=== PATIENT | female | born 1980 | race American Indian/Alaskan Native ===

== ENCOUNTER 2017-11-10 11:10 | Emergency (ER) | payer MEDICAID ==
[2017-11-10] MEDS ORDERED: APRESOLINE IV ONE (12:00)
[2017-11-10] MEDS ORDERED: ZOFRAN IV ONE (12:00)
[2017-11-10 12:17] LABS: Basophils % (Auto) 0.4 % (0.0-1.8); Eosinophils # (Auto) 0.9 K/mm3 (0.0-0.4); Eosinophils % (Auto) 9.9 % (0.0-4.3); Hematocrit 36.2 % (30.3-42.9); Hemoglobin 12.9 gm/dl (10.1-14.3); Lymphocytes # (Auto) 2.2 K/mm3 (1.2-5.4); Lymphocytes % (Auto) 24.5 % (13.4-35.0); Mean Corpuscular HGB Conc 36 % (30-34); Mean Corpuscular Hemoglobin 33 pg (28-32); Mean Corpuscular Volume 92 fl (79-97); Monocytes # (Auto) 0.6 K/mm3 (0.0-0.8); Monocytes % (Auto) 7.1 % (0.0-7.3); Platelet Count 215 K/mm3 (140-440); Red Blood Count 3.96 M/mm3 (3.65-5.03); Red Cell Distribution Width 13.8 % (13.2-15.2)
[2017-11-10 12:22] LABS: BUN/Creatinine Ratio 12; Blood Urea Nitrogen 6 mg/dL (7-17); Calcium 8.6 mg/dL (8.4-10.2); Hemolysis Index 12
[2017-11-10 13:01] LABS: Bacteria,Urine 1+ /HPF (Negative); Bilirubin,Urine NEG (Negative); Blood,Urine NEG (Negative); Color,Urine Yellow (Yellow); Mucus,Urine 2+ /HPF; Protein,Urine <15 mg/dL mg/dL (Negative)
--- NOTE | 2017-11-10 14:17 | Ultrasound Report ---
OB ULTRASOUND History decreased movement. Technique: Transabdominal ultrasound with Doppler interrogation. Comparison: None. Gestation: Single Position: Cephalic Amniotic Fluid: Within normal limits Placenta: Anterior Placental Grade: 0 Heart Rate: 145 BPM Cervical length: 3.5 cm (Normal > 3 cm) x It is too early for a anatomical survey BPD: 3.3 cm = 16 w 1 d HC: 13.4 cm = 17 w 0 d AC: 10.4 cm = 16 w 2 d FL: 2.2 cm = 16 w 5 d HC/AC Ratio: 1.29 Cephalic Index: 71.5 Estimated Weight: 160 grams. 85th percentile. Clinical age = 15 w 6 d EDC: 04/28/18 US Gest. Age = 16 w 4 d EDC: 04/23/18 IMPRESSION: Viable, single intrauterine as described. No acute abnormality is detected
[2017-11-10 14:46] VITALS: BP 129/76
--- NOTE | 2017-11-10 15:25 | Emergency Department Report ---
HPI - General Chief Complaint: High BP Time Seen by Provider: 11/10/17 11:59 - HPI HPI: The patient is 37-year-old female EGA 16 weeks whom presents for evaluation of abdominal pain, nausea, and vomiting. The patient complains of 2 days of cramping lower abdominal pain, mild in severity, exacerbated with retching, and associated with nausea and 2-3 episodes of nonbilious, nonbloody emesis. The patient denies fever, chills, night sweats, trauma to the abdomen, vaginal bleeding, diarrhea, blood in the stool, dark tarry stool, dysuria, hematuria, flank pain, genital discharge, inability to pass flatus. ED Past Medical Hx - Past Medical History Hx Hypertension: Yes - Surgical History Past Surgical History?: No - Social History Smoking Status: Current Every Day Smoker Substance Use Type: None - Medications Home Medications: Home Medications Medication Instructions Recorded Confirmed Last Taken Type Acetaminophen [Tylenol] 500 mg PO Q6HR #20 tablet 11/10/17 Unknown Rx Ondansetron [Zofran TAB] 4 mg PO Q8HR PRN #20 tablet 11/10/17 Unknown Rx Pnv No.95/Ferrous Fum/Folic AC 1 each PO QDAY #31 tablet 11/10/17 Unknown Rx [ Vitamin Tablet] ED Review of Systems ROS: Stated complaint: FLU LIKE SYMPTOMS Other details as noted in HPI Constitutional: denies: fever ENT: denies: throat or neck pain Respiratory: denies: cough, shortness of breath Cardiovascular: denies: chest pain Endocrine: denies unexplained weight loss or gain Gastrointestinal: reports: abdominal pain, nausea Genitourinary: denies: dysuria Musculoskeletal: denies: leg swelling Skin: denies: rash Neurological: denies: headache Hematological/Lymphatic: denies: easy bleeding or easy bruising Psych: denies sadness or hopelessness Physical Exam - Physical Exam Vital Signs: Vital Signs 11/10/17 11/10/17 11/10/17 11:14 11:43 11:45 Temperature 97.7 F Pulse Rate 86 Respiratory 16 Rate Blood Pressure 176/111 155/91 O2 Sat by Pulse 99 100 97 Oximetry 11/10/17 11/10/17 11/10/17 12:00 12:16 12:42 Temperature Pulse Rate Respiratory Rate Blood Pressure 117/65 117/65 134/76 O2 Sat by Pulse 97 100 98 Oximetry 02/28/18 02/28/18 02/28/18 12:46 14:30 14:45 Temperature Pulse Rate Respiratory Rate Blood Pressure 134/76 134/76 129/76 O2 Sat by Pulse 99 100 Oximetry Physical Exam: General: well-nourished, well-developed, no acute distress Head: Normocephalic, atraumatic Eyes: normal sclera ENT: Mucous membranes are pink and moist Neck: trachea midline, neck supple, No neck stiffness, no cervical adenopathy Respiratory: Breath sounds equal bilaterally, no wheezing, rales, or rhonchi Cardio: S1 and S2 present, no murmurs, rubs, gallops, capillary refill is brisk Abdomen: Normoactive bowel sounds, soft abdomen, suprapubic tenderness to palpation present, no rigidity, no guarding or rebound tenderness Chest WALL/Back: No tenderness to palpation of the chest wall, no CVA tenderness with percussion Musc: No pitting edema Skin: No rash Neuro: no facial drooping, normal speech Psych: Normal affect ED Course Vital Signs 11/10/17 11/10/17 11/10/17 11:14 11:43 11:45 Temperature 97.7 F Pulse Rate 86 Respiratory 16 Rate Blood Pressure 176/111 155/91 O2 Sat by Pulse 99 100 97 Oximetry 11/10/17 11/10/17 11/10/17 12:00 12:16 12:42 Temperature Pulse Rate Respiratory Rate Blood Pressure 117/65 117/65 134/76 O2 Sat by Pulse 97 100 98 Oximetry 11/10/17 11/10/17 11/10/17 12:46 14:30 14:45 Temperature Pulse Rate Respiratory Rate Blood Pressure 134/76 134/76 129/76 O2 Sat by Pulse 99 100 Oximetry ED Medical Decision Making - Lab Data Result diagrams: 11/10/17 11:50 11/10/17 11:50 - Medical Decision Making The patient was seen and examined by myself. 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 On initial evaluation, the patient was found to be in no distress. Evaluation orders were placed. The patient was given nausea medicine. Lab results exhibited positive beta hCG and Rh+ blood type. Ultrasound of the pelvis reveals a live intrauterine 16 weeks ega, with normal heart rate. The patient was reevaluated and reported that their symptoms were markedly improved. The patient is stable for discharge with outpatient follow-up. The patient is given follow-up and return instructions. The patient expressed understanding and agreed with the plan. The patient is discharged in stable condition. Critical care attestation.: If time is entered above; I have spent that time in minutes in the direct care of this critically ill patient, excluding procedure time. ED Disposition Clinical Impression: Hypertensive urgency, Abdominal pain during intrauterine , Nausea and vomiting during prior to 22 weeks gestation Disposition: TO HOME OR SELFCARE Is pt being admited?: No Does the pt Need Aspirin: No Condition: Stable Instructions: Hypertensive Crisis (ED), Morning Sickness (ED), Acute Nausea and Vomiting (ED), Acute Abdominal Pain (ED) Referrals: PRIMARY CARE, [Primary Care Provider] - 3-5 Days [facility] [Provider Group] - 3-5 Days Time of Disposition: 15:20
== END 2017-11-10 16:04 | disposition home or self-care (01) ==
LOC: ED 11:10
DX: O26.892 Other specified pregnancy related conditions, second trimester (principal); R10.2 Pelvic and perineal pain; O21.9 Vomiting of pregnancy, unspecified; O16.2 Unspecified maternal hypertension, second trimester; I16.0 Hypertensive urgency; O99.332 Smoking (tobacco) complicating pregnancy, second trimester; F17.200 Nicotine dependence, unspecified, uncomplicated; Z3A.16 16 weeks gestation of pregnancy; Z88.6 Allergy status to analgesic agent; Z88.8 Allergy status to other drugs, medicaments and biological substances
CPT/HCPCS: 36415; 76805; 80048; 81001; 84702; 85025

== ENCOUNTER 2020-06-16 00:16 | Emergency (ER) | payer SELFPAY | END 2020-06-16 00:45 | disposition left against medical advice (07) | LOC: ED 00:16 | DX: R10.9 Unspecified abdominal pain (principal); Z53.21 Procedure and treatment not carried out due to patient leaving prior to being seen by health care provider ==

== ENCOUNTER 2020-10-18 15:05 | Emergency (ER) | payer SELFPAY ==
[2020-10-18 15:39] VITALS: BP 165/119
== END 2020-10-18 16:00 | disposition left against medical advice (07) ==
LOC: ED 15:05
DX: F41.9 Anxiety disorder, unspecified (principal); Z53.21 Procedure and treatment not carried out due to patient leaving prior to being seen by health care provider